=== PATIENT | female | born 1955 | race Caucasian/White ===

== ENCOUNTER 2018-06-01 15:25 | Observation (INO) | payer OTHER ==
[2018-06-01] VITALS (8 sets, daily range): BP systolic 102–160; BP diastolic 60–74
[~2018-06-01] VITALS: Ht 160 cm; Wt 61.2 kg
--- NOTE | ~2018-06-01 | D ---
[facility] [place] [address] DISCHARGE SUMMARY Name: ZACKERY JACKSON Room #: 200-I [facility] Lashon Enriquez#: [id number] Admission: 06/01/18 Attend Phys: Michael Mcclellan MD, Discharge: 06/02/18 Date of : 57 Report #: [id number] THIS REPORT FOR: //name// CC: Michael Jacobo DATE OF SERVICE: 06/02/2018 DISCHARGE DIAGNOSIS: Coronary artery disease. PROCEDURES PERFORMED: Stent placement to the proximal left circumflex for a 90% lesion with a drug-eluting Resolute stent. HISTORY: The patient is a 63-year-old female with history of hypertension, anxiety, depression, SVT status post ablation and PVCs, treated with flecainide, who recently started having chest pain. She had recently had a normal nuclear stress test, but given her symptoms she underwent diagnostic cardiac catheterization, which demonstrated a proximal circumflex lesion, 90%. She underwent successful drug-eluting stent placement with no complications. HOSPITAL COURSE: She was monitored overnight in the hospital. On the day of discharge, she denied any chest pain, shortness of breath, PND, orthopnea. She does report a history of skipped heartbeats related to PVCs for which she has been on flecainide. This has been well controlled. On the day of discharge, on exam her heart was regular rate and rhythm, with no JVD. Lungs were clear bilaterally. Right groin showed no bruising or hematoma. On telemetry, she did have some occasional PVCs and ventricular ectopy. A 12-lead EKG performed today showed no evidence of ischemia and her labs were otherwise within normal limits. As such, she was deemed stable for discharge home. Discharge instructions were reviewed. She will go home on aspirin, prasugrel, atorvastatin, nebivolol. She will also continue with her atorvastatin, potassium, levothyroxine, Depakote and bupropion. Her flecainide will be discontinued given her newly diagnosed coronary artery disease. She will follow up with Dr. Mcclellan in 1 month. By: [id number] Logan Villeda MD /nt
--- NOTE | ~2018-06-01 | EKG ---
[address] [address] ELECTROCARDIOGRAM REPORT Name: ZACKERY JACKSON Room #: 200-I [facility] M.RElyse#: [id number] Admission: 06/01/18 Attend Phys: Michael Mcclellan MD, Discharge: 06/02/18 Date of : 57 Report #: [id number] THIS REPORT FOR: //name// [facility] Test Date: 2018-06-02 Test Time: 07:51:37 Pat Name: ZACKERY JACKSON Department: Room: 200 I Gender: F Claims Analyst: BIJU : 1955 Requested By: Michael Mcclellan Order Number: [id number] MD: Logan Villeda Measurements Intervals Center Rate: 68 P: 46 MI: 152 QRS: -8 QRSD: 98 T: 22 QT: 423 QTc: 450 Interpretive Statements Sinus rhythm Abnormal R-wave progression, early transition Borderline repolarization abnormality No previous ECG available for comparison Electronically Signed On 06-03-2018 16:46:50 CDT by Logan Villeda [email or web address] <ELECTRONICALLY SIGNED> By: Logan Villeda MD 06/03/18 1646 [id number] Logan Villeda MD /CRISTIAN
--- NOTE | ~2018-06-01 | EKG ---
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: Frantz GONZALEZ : 1955 Requested By: Michael Mcclellan Order Number: [id number] MD: Logan Villeda Measurements Intervals Amanda Rate: 75 P: 89 PA: 145 QRS: 2 QRSD: 101 T: 51 QT: 394 QTc: 441 Interpretive Statements Sinus rhythm Ventricular premature complex Abnormal R-wave progression, early transition Nonspecific repol abnormality, anterior leads No previous ECG available for comparison Electronically Signed On 06-03-2018 16:44:59 CDT by Logan Villeda [email or web address] <ELECTRONICALLY SIGNED> By: Logan Villeda MD 06/03/18 1644 03 03 Logan Villeda MD /EPI
[2018-06-01] MEDS ORDERED: SYNTHROID125 MC1 PO (16:17)
[2018-06-01] MEDS ORDERED: K-DUR 20 MEQ T20 MEQ PO (16:17)
[2018-06-01] MEDS ORDERED: LIPITOR 20 MG T20 M1 PO (16:17)
[2018-06-01] MEDS ORDERED: FLECAINIDE ACE100 MG PO (16:18)
[2018-06-01] MEDS ORDERED: DEPAKOTE 250MG250 M1 PO (16:18)
[2018-06-01] MEDS ORDERED: BUPROPION HCL150 M1 PO (16:19)
[2018-06-01 17:44] LABS: HEMATOCRIT 40.2 % (37.0-47.0); HEMOGLOBIN 13.8 gm/dL (12.0-15.0); MCH 30.4 pg (26.0-34.0); MCHC 34.3 g/dL (28.0-37.0); MCV 88.6 fL (80.0-100.0); RBC 4.53 mil/uL (4.20-5.00); RDW 13.6 % (10.5-14.5); WBC 7.2 thou/uL (4.0-11.0)
[2018-06-01 17:56] LABS: ALBUMIN 3.1 g/dL (3.4-5.0); CALCIUM 8.9 mg/dL (8.5-10.1); CREATININE 0.9 mg/dL (0.6-1.0); PHOSPHORUS 3.6 mg/dL (2.5-4.9); POTASSIUM 3.5 mmol/L (3.5-5.1)
[2018-06-02 00:12] VITALS: BP 134/77
[2018-06-02 03:56] LABS: HEMATOCRIT 35.9 % (37.0-47.0); HEMOGLOBIN 12.1 gm/dL (12.0-15.0); MCHC 33.8 g/dL (28.0-37.0); MCV 88.6 fL (80.0-100.0); RBC 4.05 mil/uL (4.20-5.00); RDW 14.2 % (10.5-14.5); WBC 7.6 thou/uL (4.0-11.0)
[2018-06-02 04:12] LABS: CALCIUM 8.3 mg/dL (8.5-10.1); POTASSIUM 3.5 mmol/L (3.5-5.1)
[2018-06-02 04:19] LABS: TROPONIN-I 0.7 ng/mL (<0.06)
[2018-06-02 05:15] VITALS: BP 95/53
[2018-06-02 07:10] VITALS: BP 99/57
[2018-06-02] MEDS ORDERED: EFFIENT10 MG PO (10:31)
[2018-06-02] MEDS ORDERED: BYSTOLIC10 MG PO (10:32)
[2018-06-02] MEDS ORDERED: ATORVASTATIN CA40 MG PO (10:32)
[2018-06-02] MEDS ORDERED: ASPIRIN325 PO (10:33)
[2018-06-02 10:45] VITALS: BP 99/57
[2018-06-02 10:46] VITALS: BP 99/57
== END 2018-06-02 11:25 | disposition home or self-care (01) ==
LOC: 2N 15:25
PROVIDERS: Internal Medicine Cardiovascular Disease
DX: I25.10 Atherosclerotic heart disease of native coronary artery without angina pectoris (principal); R07.9 Chest pain, unspecified; I10 Essential (primary) hypertension; F41.9 Anxiety disorder, unspecified; F32.9 Major depressive disorder, single episode, unspecified; E78.00 Pure hypercholesterolemia, unspecified; I70.1 Atherosclerosis of renal artery; I47.1 Supraventricular tachycardia; R68.89 Other general symptoms and signs; Z98.890 Other specified postprocedural states; Z90.710 Acquired absence of both cervix and uterus; Z87.891 Personal history of nicotine dependence; Z23 Encounter for immunization

== ENCOUNTER 2021-07-07 12:27 | Observation (INO) | payer OTHER, MEDICARE ==
[~2021-07-07] VITALS: Ht 160 cm; Wt 59.4 kg
[~2021-07-07 12:27] MED LIST changes: -ALPRAZOLAM 0.50.5 M1 PO; -ASA81BEC PO; -FUROSEMIDE 20 M20 MG PO; -K-TAB ER20 MEQ PO; -LIPITOR40 MG PO; -NITROSTAT0.4 M1 SUBLING; -PRILOSEC OTC20 MG PO; -SYNTHROID88 MC1 PO; -WELLBUTRIN XL150 MG PO; -WOMEN'S LAXATIVE5 M1 PO
[2021-07-07 12:54] VITALS: BP 143/88
[2021-07-07 12:56] LABS: HEMATOCRIT 41.6 % (37.0-47.0); HEMOGLOBIN 14.1 gm/dL (12.0-15.0); MCH 30.6 pg (26.0-34.0); MCHC 33.9 g/dL (28.0-37.0); MCV 90.2 fL (80.0-100.0); RBC 4.61 mil/uL (4.20-5.00); RDW 13.6 % (10.5-14.5); WBC 7.5 thou/uL (4.0-11.0)
[2021-07-07] MEDS ORDERED: ASA81BEC PO (12:59)
[2021-07-07] MEDS ORDERED: LIPITOR40 MG PO (13:00)
[2021-07-07] MEDS ORDERED: SYNTHROID88 MC1 PO (13:01)
[2021-07-07] MEDS ORDERED: K-TAB ER20 MEQ PO (13:03)
[2021-07-07] MEDS ORDERED: FUROSEMIDE 20 M20 MG PO (13:05)
[2021-07-07] MEDS ORDERED: PRILOSEC OTC20 MG PO (13:06)
[2021-07-07] MEDS ORDERED: WELLBUTRIN XL150 MG PO (13:06)
[2021-07-07] MEDS ORDERED: NITROSTAT0.4 M1 SUBLING (13:09)
[2021-07-07] MEDS ORDERED: WOMEN'S LAXATIVE5 M1 PO (13:09)
[2021-07-07] MEDS ORDERED: ALPRAZOLAM 0.50.5 M1 PO (13:10)
[2021-07-07 13:30] LABS: CALCIUM 8.5 mg/dL (8.5-10.1); POTASSIUM 4.1 mmol/L (3.5-5.1)
[2021-07-07 19:31] VITALS: BP 143/88
--- NOTE | 2021-07-07 20:18 | NUR ---
RECEIVED PT FROM THE VIDEO PRODUCTION ASSISTANT FOR EXTENDED RECOVERY. PT IS AXOX4, PLEASANT. PT HAD L HEART CATH. R GROIN MYNX DRESSING C/D/I, NO HEMATOMA. PT TO COMPLETE 3 HOUR BEDREST AND BE D/C. DR BUCHANAN CONSULTED. PT TO CONTINUE HOME MEDS, WITH FOLLOW UP WITH CARDIOLOGY IN ONE MONTH. PT COMMUNICATED UNDERSTANDING. PT TO D/C HOME WITH SPOUSE. NO CONCERNS AT THIS TIME.
--- NOTE | 2021-07-30 11:04 | CATHLAB ---
[facility] [place] [address] INVASIVE PROCEDURE REPORT Name: ZACKERY JACKSON Room #: 210-P [facility] Lashon MRichard#: [id number] Admission: 07/07/21 Attend Phys: Michael Mcclellan MD, Discharge: 07/07/21 Date of : 57 Report #: [id number] THIS REPORT FOR: cc: Chao Ocampo James L. DO Mancuso, Gerald M. MD [facility] ~ APPROVED REPORT Study performed: 07/07/2021 15:09:42 Patient Details Patient Status: In-Patient Room #: The patient is a 66 year-old female Event Personnel Michael Mcclellan Care Assistant, Daphne Fitzgerald RTR Scrub, Grant Lu RTR Monitor, Camilla Vargas RN RN, Aliza Carlton RN processing archivist Performed Left Heart Cath w/or w/o Coronaries [id number] [facility] Art Access - R femoral artery* 07895 Initial Mod Sed Same Phys/QHP Gr5y [id number] Indication Chest pain Procedure Narrative The Right Groin^ was infiltrated with 1% Lidocaine subcutaneous anesthesia. A PINNACLE 6FR Sheath #[id number] sheath was inserted into the RFA^. Coronary angiography was performed using coronary diagnostic catheters. The right coronary system was accessed and visualized with a JR4 catheter. The left coronary system was accessed and visualized with a JL4 catheter. The left ventricle was accessed and visualized with a PIGTAIL catheter. Left ventricular/Aortic Valve gradient assessed via catheter pullback. Left ventriculogram was performed in 30 degree projection. Closure device was deployed with a Fr MYNXGRIP 6/7F #[id number]. The patient tolerated the procedure well and there were no complications associated with the procedure. There was no hematoma. Intraoperative Conscious Sedation Sedation start time: 15:56 Case end Time: 16:26 [facility] [place] [employer] [address] [place] [address] INVASIVE PROCEDURE REPORT Name: ZACKERY JACKSON Room #: 210-[facility] M.R.#: [id number] Admission: 07/07/21 Attend Phys: Michael LandryElyse Vy, Discharge: 07/07/21 Date of : 57 Report #: [id number] Fentanyl 50 mcg Versed 1 mg Fluoro Time: 1.30 minutes Dose: DAP 1544.80 cGycm2 176 mGy Contrast Type and Amount: Omnipaque 110 ml Hemodynamics The aortic pressure is 186/103 mmHg with a mean of 134 mmHg. The left ventricular pressure is 192/15 mmHg with a mean of mmHg. The left ventricular end diastolic pressure is 37 mmHg. Pullback from the left ventricle to the aorta revealed no gradient across the aortic valve. Conclusion #1 Normal left ventricular systolic function normal size EF 60% #2 there is separate ostium of circumflex and LAD. Cloaceal #3 LAD with mild irregularity widely patent is a smaller vessel at the apex. #4 large potentially nondominant circumflex previously stented ostium is widely patent no significant restenosis. #5 dominant right coronary artery widely patent Recommendations and plan: Continue aggressive risk factor modification. Continue current regimen. Patient will be discharged home to follow discharge protocol. <ELECTRONICALLY SIGNED> By: Michael Mcclellan MD, FACC 07/30/21 1104 173 173 Michael Mcclellan MD, FACC /INF
== END 2021-07-07 20:21 | disposition home or self-care (01) ==
LOC: CATH 12:27 → 2N 17:02
PROVIDERS: ADMIT Internal Medicine Cardiovascular Disease; ATTEND Internal Medicine Cardiovascular Disease
DX: I25.10 Atherosclerotic heart disease of native coronary artery without angina pectoris (principal); I10 Essential (primary) hypertension; F41.9 Anxiety disorder, unspecified; F32.9 Major depressive disorder, single episode, unspecified; Z20.822 Contact with and (suspected) exposure to COVID-19; Z79.899 Other long term (current) drug therapy; Z79.01 Long term (current) use of anticoagulants

== ENCOUNTER → 2021-07-07 | Outpatient (CLI) | payer OTHER, MEDICARE ==
[~2021-07-07] MED LIST: ALPRAZOLAM 0.50.5 M1 PO; ASA81BEC PO; ASPIRIN325 PO; ATORVASTATIN CA40 MG PO; BUPROPION HCL150 M1 PO; BYSTOLIC10 MG PO; DEPAKOTE 250MG250 M1 PO; EFFIENT10 MG PO; FLECAINIDE ACE100 MG PO; FUROSEMIDE 20 M20 MG PO; K-DUR 20 MEQ T20 MEQ PO; K-TAB ER20 MEQ PO; LIPITOR 20 MG T20 M1 PO; LIPITOR40 MG PO; NITROSTAT0.4 M1 SUBLING; PRILOSEC OTC20 MG PO; SYNTHROID125 MC1 PO; SYNTHROID88 MC1 PO; WELLBUTRIN XL150 MG PO; WOMEN'S LAXATIVE5 M1 PO
--- NOTE | 2021-07-07 17:32 | CATHLAB ---
[facility] [place] [address] INVASIVE PROCEDURE REPORT Name: ZACKERY JACKSON Room #: REG JURGEN Grimes.#: [id number] Admission: 07/07/21 Attend Phys: Michael Mcclellan MD, Discharge: Date of : 57 Report #: [id number] THIS REPORT FOR: cc: Chao Ocampo James L. DO Mancuso, Gerald M. MD [facility] ~ APPROVED REPORT Study performed: 07/07/2021 15:09:42 Patient Details Patient Status: In-Patient Room #: The patient is a 66 year-old female Event Personnel Michael Mcclellan Mexican Food Cook, Daphne Fitzgerald RTR Scrub, Grant Lu RTR Monitor, Camilla Vargas RN RN, Aliza Carlton RN technology administrator Performed Left Heart Cath w/or w/o Coronaries [id number] [facility] Art Access - R femoral artery* 87340 Initial Mod Sed Same Phys/QHP Gr5y 690433 Indication Chest pain Procedure Narrative The Right Groin^ was infiltrated with 1% Lidocaine subcutaneous anesthesia. A PINNACLE 6FR Sheath #[id number] sheath was inserted into the RFA^. Coronary angiography was performed using coronary diagnostic catheters. The right coronary system was accessed and visualized with a JR4 catheter. The left coronary system was accessed and visualized with a JL4 catheter. The left ventricle was accessed and visualized with a PIGTAIL catheter. Left ventricular/Aortic Valve gradient assessed via catheter pullback. Left ventriculogram was performed in 30 degree projection. Closure device was deployed with a Fr MYNXGRIP 6/7F #[id number]. The patient tolerated the procedure well and there were no complications associated with the procedure. There was no hematoma. Intraoperative Conscious Sedation Sedation start time: 15:56 Case end Time: 16:26 [facility] [place] [place] [address] INVASIVE PROCEDURE REPORT Name: ZACKERY JACKSON [facility] [id number] Admission: 07/07/21 Attend Phys: Michael Mcclellan, Discharge: Date of : 57 Report #: [id number] Fentanyl 50 mcg Versed 1 mg Fluoro Time: 1.30 minutes Dose: DAP 1544.80 cGycm2 176 mGy Contrast Type and Amount: Omnipaque 110 ml Hemodynamics The aortic pressure is 186/103 mmHg with a mean of 134 mmHg. The left ventricular pressure is 192/15 mmHg with a mean of mmHg. The left ventricular end diastolic pressure is 37 mmHg. Pullback from the left ventricle to the aorta revealed no gradient across the aortic valve. Conclusion #1 Normal left ventricular systolic function normal size EF 60% #2 there is separate ostium of circumflex and LAD. Cloaceal #3 LAD with mild irregularity widely patent is a smaller vessel at the apex. #4 large potentially nondominant circumflex previously stented ostium is widely patent no significant restenosis. #5 dominant right coronary artery widely patent Recommendations and plan: Continue aggressive risk factor modification. Continue current regimen. Patient will be discharged home to follow discharge protocol. <ELECTRONICALLY SIGNED> By: Michael Mcclellan MD, FACC 07/07/21 173 31 31 Michael Mcclellan MD, FACC /INF
== END | disposition home or self-care (01) ==
LOC: SJCVC 10:54
PROVIDERS: ATTEND Internal Medicine Cardiovascular Disease
DX: R07.9 Chest pain, unspecified (principal); I25.10 Atherosclerotic heart disease of native coronary artery without angina pectoris; Z98.890 Other specified postprocedural states; Z79.899 Other long term (current) drug therapy; Z79.82 Long term (current) use of aspirin; Z88.8 Allergy status to other drugs, medicaments and biological substances